=== PATIENT | male | born 1980 ===

== ENCOUNTER 2016-08-18 11:22 | Emergency (ER) | payer OTHER ==
[2016-08-18 12:42] VITALS: RESP 16; O2SAT 99; BMI 28.3
[2016-08-18] MEDS ORDERED: Lidocaine 1% Inj (20ml) IJ STA (12:52)
[2016-08-18] MEDS ORDERED: TDAP Vaccine 0.5 mL Syr IM ONE (12:52)
--- NOTE | 2016-08-18 13:29 | ED PDOC ---
Arrival/HPI - General Chief Complaint: Trauma Time Seen by Provider: 08/18/16 11:37 Historian: Patient - History of Present Illness Narrative History of Present Illness (Text): 08/18/16 13:34 A 36 year old male presents to the emergency department after falling from step ladder complaining of right hand, left foot pain and head injury. Patient reports ladder was about 4-5 feet from the ground and lost consciousness for a few seconds. Patient is ambulatory upon arrival. Notes left foot pain with movement. Patient denies any other complaints at this time. Patient unsure of last tetanus shot. Symptom Onset: Sudden Symptom Course: Unchanged Modifying Factors (Text): none Associated Symptoms (Text): none Past Medical History - Provider Review Nursing Documentation Reviewed: Yes - Infectious Disease Hx of Infectious Diseases: None - Psychiatric Hx Substance Use: No - Anesthesia Hx Anesthesia: No Hx Anesthesia Reactions: No Hx Malignant Hyperthermia: No Family/Social History - Physician Review Nursing Documentation Reviewed: Yes Family/Social History: No Known Family HX Smoking Status: Current Some Days Smoker Hx Alcohol Use: No Hx Substance Use: No Allergies/Home Meds Allergies/Adverse Reactions: Allergies No Known Allergies Allergy (Unverified 08/18/16 12:51) Review of Systems - Physician Review All systems were reviewed & negative as marked: Yes - Review of Systems Musculoskeletal: Other (right hand pain, left foot pain) Neurological: Other (2 cm left parietal laceration) Physical Exam Vital Signs Reviewed: Yes Vital Signs Temp Pulse Resp BP Pulse Ox 08/18/16 14:58 98 F 65 16 121/76 99 08/18/16 12:36 98.8 F 71 16 125/86 99 08/18/16 11:23 98.8 F 71 16 125/86 99 Temperature: Afebrile Blood Pressure: Normal Pulse: Regular Respiratory Rate: Normal Appearance: Positive for: Well-Appearing, Non-Toxic, Comfortable Pain Distress: None Mental Status: Positive for: Alert and Oriented X 3 - Systems Exam Head: Present: Normocephalic, Laceration (2 cm laceration L parietal) Pupils: Present: PERRL Extroacular Muscles: Present: EOMI Conjunctiva: Present: Normal Mouth: Present: Moist Mucous Membranes Neck: Present: Normal Range of Motion Respiratory/Chest: Present: Clear to Auscultation, Good Air Exchange. No: Respiratory Distress, Accessory Muscle Use Cardiovascular: Present: Regular Rate and Rhythm, Normal S1, S2. No: Murmurs Abdomen: Present: Normal Bowel Sounds. No: Tenderness, Distention, Peritoneal Signs Back: Present: Normal Inspection Upper Extremity: Present: Normal ROM (R hand), Other (ecchymosis of R hand). No : Cyanosis, Edema Lower Extremity: Present: Normal Inspection. No: Edema Neurological: Present: GCS=15, CN II-XII Intact, Speech Normal Skin: Present: Warm, Dry, Normal Color. No: Rashes Psychiatric: Present: Alert, Oriented x 3, Normal Insight, Normal Concentration Medical Decision Making ED Course and Treatment: 08/18/16 13:27 Impression: A 36 year old male s/p fall from ladder with right hand, left foot pain and head injury. Differential Diagnosis included but are not limited to: r/o fracture Plan: -- CT head -- Radiology left foot -- Radiology right hand -- Boostrix Vaccine -- Reassess and disposition Progress Notes: PROCEDURE: LACERATION REPAIR Performed by the emergency provider Location: left parietal Length: 2 cm Description: clean wound edges, no foreign bodies Distal CMS: Normal. No deficits. Neurovascularly intact. Anesthesia: Lidocaine 1% subcutaneous. Preparation: The wound was cleaned with NS and Bet[place]. The area was prepped and draped in the usual sterile fashion. Exploration: The wound was explored and no foreign bodies were found. Procedure: The wound was closed with maldonado. There was good approximation. In total, 6 maldonado were used. Post-Procedure: Good closure and hemostasis. The patient tolerated the procedure well and there were no complications. CSM remains intact. Post procedure dressing applied. 08/18/16 14:06 CT HEAD WITHOUT CONTRAST Creator : Martín Minaya MD IMPRESSION: No acute finding. 08/18/16 13:36 Right Hand Radiographs Creator : Martín Minaya MD IMPRESSION: Normal right hand radiographs. 08/18/16 13:34 Left Foot Radiographs Creator : Martín iMnaya MD IMPRESSION: Normal left foot radiographs. - RAD Interpretation Radiology Orders: 08/18/16 12:52 HEAD W/O CONTRAST [CT] Stat FOOT LEFT 3 VIEWS ROUTINE [RAD] Stat HAND RIGHT 3 VIEWS [RAD] Stat - Medication Orders Current Medication Orders: Discontinued Medications Lidocaine HCl (Lidocaine 1% (20ml)) 5 ml IJ STAT STA Stop: 08/18/16 12:53 Last Admin: 08/18/16 13:46 Dose: 1 bottle Tetanus/Reduced Diphtheria/Acell Pertussis (Boostrix Vaccine Inj) 0.5 ml IM .ONCE ONE Stop: 08/18/16 12:53 Last Admin: 08/18/16 13:45 Dose: 0.5 ml - Scribe Statement The provider has reviewed the documentation as recorded by the Pat Chavez Provider Scribe Attestation: All medical record entries made by the Scribe were at my direction and personally dictated by me. I have reviewed the chart and agree that the record accurately reflects my personal performance of the history, physical exam, medical decision making, and the department course for this patient. I have also personally directed, reviewed, and agree with the discharge instructions and disposition. Disposition/Present on Arrival - Present on Arrival Any Indicators Present on Arrival: No History of DVT/PE: No History of Uncontrolled Diabetes: No Urinary Catheter: No History of Decub. Ulcer: No History Surgical Site Infection Following: None - Disposition Have Diagnosis and Disposition been Completed?: Yes Diagnosis: Scalp laceration, Hand pain, Foot pain Disposition: HOME/ ROUTINE Disposition Time: 14:00 Condition: IMPROVED Discharge Instructions (ExitCare): Head Injury (ED), Staple Care (ED) Additional Instructions: Thank you for letting us take care of you today. Your provider was Dr. Smith. You were treated for scalp laceration and hand/foot pain. The emergency medical care you received today was directed at your acute symptoms. If you were prescribed any medication, please fill it and take as directed. It may take several days for your symptoms to resolve. Return to the Emergency Department if your symptoms worsen, do not improve, or if you have any other problems. Please contact your doctor or call one of the physicians/clinics you have been referred to that are listed on the Patient Visit Information form that is included in your discharge packet. Bring any paperwork you were given at discharge with you along with any medications you are taking to your follow up visit. Our treatment cannot replace ongoing medical care by a primary care provider (PCP) outside of the emergency department. Thank you for allowing the [facility] team to be part of your care today. Follow up in 7-10 days with the clinic or the emergency room for staple removal. Referrals: [facility], [Primary Care Provider] - Follow up with primary
--- NOTE | 2016-08-18 13:32 | RAD ---
PROCEDURE: Left Foot Radiographs. HISTORY: r/o fx COMPARISON: None. FINDINGS: BONES: Normal. No fracture. JOINTS: Normal. SOFT TISSUES: Normal. OTHER FINDINGS: None. IMPRESSION: Normal left foot radiographs.
--- NOTE | 2016-08-18 13:33 | RAD ---
PROCEDURE: Right Hand Radiographs. HISTORY: r/o fx COMPARISON: None. FINDINGS: BONES: Normal. No fracture. JOINTS: Normal. No osteoarthritic changes. SOFT TISSUES: Normal. OTHER FINDINGS: None. IMPRESSION: Normal right hand radiographs.
--- NOTE | 2016-08-18 14:04 | CT ---
PROCEDURE: CT HEAD WITHOUT CONTRAST. HISTORY: r/o fx and ICH COMPARISON: None available. TECHNIQUE: Axial computed tomography images were obtained through the head/brain without intravenous contrast. Radiation dose: Total exam DLP = 885 mGy-cm. This CT exam was performed using one or more of the following dose reduction techniques: Automated exposure control, adjustment of the mA and/or kV according to patient size, and/or use of iterative reconstruction technique. FINDINGS: HEMORRHAGE: No intracranial hemorrhage. BRAIN: No mass effect or edema. No atrophy or chronic microvascular ischemic changes. VENTRICLES: Unremarkable. No hydrocephalus. CALVARIUM: Unremarkable. PARANASAL SINUSES: Unremarkable as visualized. No significant inflammatory changes. MASTOID AIR CELLS: Unremarkable as visualized. No inflammatory changes. OTHER FINDINGS: None. IMPRESSION: No acute finding
[2016-08-18 14:58] VITALS: BP 121/76; PULSE 65; TEMP 98
== END 2016-08-18 14:20 | disposition home or self-care (01) ==
LOC: ED 11:22
DX: S01.01XA Laceration without foreign body of scalp, initial encounter (principal); W11.XXXA Fall on and from ladder, initial encounter; M79.672 Pain in left foot; M79.641 Pain in right hand; F17.200 Nicotine dependence, unspecified, uncomplicated; Z23 Encounter for immunization

== ENCOUNTER 2016-08-27 13:26 | Emergency (ER) | payer OTHER ==
[2016-08-27 13:47] VITALS: BMI 24.1
[2016-08-27 13:49] VITALS: BP 117/76; PULSE 89; RESP 17; TEMP 98.5; O2SAT 98
--- NOTE | 2016-08-27 14:26 | ED PDOC ---
Arrival/HPI - General Chief Complaint: Suture/Staple Removal Time Seen by Provider: 08/27/16 13:43 Historian: Patient - History of Present Illness Narrative History of Present Illness (Text): 08/27/16 14:23 This 36 yo male presents to this ED for maldonado removal. Patient stated he had 6 maldonado placed x 10 days ago. Patient stated wound is healing well. Wound is non-tender. Denies drainage or bleeding. Denies other symptoms. Time/Duration: Other (see hpi) Context: Home Past Medical History - Provider Review Nursing Documentation Reviewed: Yes - Infectious Disease Hx of Infectious Diseases: None - Psychiatric Hx Substance Use: No - Anesthesia Hx Anesthesia: No Hx Anesthesia Reactions: No Hx Malignant Hyperthermia: No Family/Social History - Physician Review Nursing Documentation Reviewed: Yes Family/Social History: No Known Family HX Smoking Status: Current Some Days Smoker Hx Alcohol Use: No Hx Substance Use: No Allergies/Home Meds Allergies/Adverse Reactions: Allergies No Known Allergies Allergy (Unverified 08/27/16 13:47) Home Medications: Home Meds Medication Instructions Recorded Confirmed No Known Home Med 08/27/16 08/27/16 Review of Systems - Review of Systems Constitutional: Normal. absent: Fatigue, Weight Change, Fevers Eyes: Normal ENT: Normal Respiratory: Normal Cardiovascular: Normal Gastrointestinal: Normal Genitourinary Male: Normal Musculoskeletal: Normal Skin: Other (Left scalp healing wound with maldonado) Neurological: Normal Endocrine: Normal Hemo/Lymphatic: Normal Psychiatric: Normal Physical Exam Vital Signs Temp Pulse Resp BP Pulse Ox 08/27/16 13:48 98.5 F 89 17 117/76 98 Temperature: Afebrile Blood Pressure: Normal Pulse: Regular Respiratory Rate: Normal Appearance: Positive for: Well-Appearing, Non-Toxic, Comfortable Pain Distress: None Mental Status: Positive for: Alert and Oriented X 3 - Systems Exam Head: Present: Normocephalic, Other ((+) healing scalp wound with 6 maldonado left parietal. No drainage, no dehiscense, no tenderness) Pupils: Present: PERRL Extroacular Muscles: Present: EOMI Conjunctiva: Present: Normal Mouth: Present: Moist Mucous Membranes Neck: Present: Normal Range of Motion Upper Extremity: Present: Normal Inspection, Normal ROM, NORMAL PULSES Lower Extremity: Present: Normal Inspection, Normal ROM Neurological: Present: GCS=15, CN II-XII Intact, Speech Normal, Motor Func Grossly Intact, Normal Sensory Function, Normal Cerebellar Funct, Gait Normal, Memory Normal Skin: Present: Warm, Dry, Normal Color, Other (See head). No: Rashes Psychiatric: Present: Alert, Oriented x 3, Normal Insight, Normal Concentration Medical Decision Making ED Course and Treatment: 08/27/16 14:28 Re-evaluation. Patient feels better. Discussed results and plan with patient who expresses understanding. All questions answered and there is agreement with the plan to discharge home with instructions. Patient stable for discharge. Return if symptoms persist or worsen. Re-evaluation Time: 14:28 Reassessment Condition: Re-examined, Improved - Procedure PROCEDURE NOTE (Text): 08/27/16 14:28 Under sterile technique, 6 maldonado were removed without complication. Patient tolerated procedure well. No dehiscense or drainage Disposition/Present on Arrival - Present on Arrival Any Indicators Present on Arrival: No History of DVT/PE: No History of Uncontrolled Diabetes: No Urinary Catheter: No History of Decub. Ulcer: No History Surgical Site Infection Following: None - Disposition Have Diagnosis and Disposition been Completed?: Yes Diagnosis: Encounter for wound re-check, Encounter for staple removal Disposition: HOME/ ROUTINE Disposition Time: 14:29 Patient Plan: Discharge Patient Problems: Current Active Problems Problem Status Onset Encounter for staple removal Acute Encounter for wound re-check Acute Condition: IMPROVED Discharge Instructions (ExitCare): Staple Care (ED) Additional Instructions: Call private doctor as needed for further medical need, return to emergency if wound becomes infected Referrals: [facility] [Outside] - Follow up with primary [facility] [Outside] - Follow up with primary Forms: WORK NOTE
== END 2016-08-27 14:30 | disposition home or self-care (01) ==
LOC: ED 13:26
DX: Z48.02 Encounter for removal of sutures (principal); Z51.89 Encounter for other specified aftercare